=== PATIENT | male | born 1980 | race Two or more races ===

== ENCOUNTER → 2019-11-30 15:02 | Outpatient (BNVA) | payer SELFPAY | PROVIDERS: PCP Internal Medicine; Visit Provider Surgery | DX: Z09 Encounter for follow-up examination after completed treatment for conditions other than malignant neoplasm (principal); Z87.19 Personal history of other diseases of the digestive system | CPT/HCPCS: 99212 ==

== ENCOUNTER 2020-01-09 19:35 | Outpatient (REF) | payer OTHER, SELFPAY ==
--- NOTE | 2020-01-09 19:45 | MR_ITS ---
EXAMINATION: MR CERVICAL SPINE WITHOUT CONTRAST CLINICAL INFORMATION: Arnold-Chiari malformation. COMPARISON: CT scan of the head 10/31/2019. TECHNIQUE: MRI of the cervical spine was obtained using routine sequences without contrast. FINDINGS: Alignment is normal. Vertebral heights are preserved. No acute bone marrow signal changes. There is disc desiccation at multiple levels without substantial loss of intervertebral disc height. There is no canal compromise or cord compression. No abnormal intramedullary signal changes. The cervicomedullary junction is normal. Cerebellar tonsils are orthotopic. Limited visualization of intracranial compartment reveals no abnormal finding. Occipital condyles and lateral C1 masses are intact. Atlantodental joint is normal. C1-C2 articular facets are unremarkable. At C2-C3, C3-C4, C4-C5, and C5-C6 the annular contours are normal. No canal or neuroforaminal compromise at these 4 levels. At C6-C7 there is a broad shallow central protrusion causing indentation of the ventral thecal sac. No canal stenosis. No neuroforaminal encroachment. At C7-T1 the annular contour is normal.. No neuroforaminal encroachment. Visualized soft tissues of the neck are normal. MR/MR cervical spine wo con IMPRESSION: There is a broad shallow central protrusion at C6-C7 causing minimal indentation of the ventral thecal sac. No canal or neuroforaminal compromise. No cord compression or abnormal intramedullary signal changes. The cervicomedullary junction is normal. No Chiari malformation.
== END 2020-01-09 19:36 | disposition home or self-care (01) ==
LOC: HO.MRI 19:35
PROVIDERS: Visit Provider Psychiatry & Neurology Neurology
DX: Q07.00 Arnold-Chiari syndrome without spina bifida or hydrocephalus (principal)
CPT/HCPCS: 72141

== ENCOUNTER 2021-06-13 09:34 | Outpatient (REF) | payer MEDICAID, SELFPAY ==
--- NOTE | ~2021-06-13 | XR_ITS ---
EXAMINATION: XR KNEE, BILATERAL. XR AP STANDING VIEW BILATERAL KNEES CLINICAL INFORMATION: Bilateral knee pain COMPARISON: None TECHNIQUE: AP standing view both knees. Lateral and sunrise views of each knee. FINDINGS: Normal alignment of both knees with no joint space narrowing. No joint effusion. No acute abnormalities. XR/XR knee RT 2V IMPRESSION: Right knee: Normal. Left knee: Normal.
--- NOTE | ~2021-06-13 | XR_ITS ---
EXAMINATION: XR KNEE, BILATERAL. XR AP STANDING VIEW BILATERAL KNEES CLINICAL INFORMATION: Bilateral knee pain COMPARISON: None TECHNIQUE: AP standing view both knees. Lateral and sunrise views of each knee. FINDINGS: Normal alignment of both knees with no joint space narrowing. No joint effusion. No acute abnormalities. XR/XR knee standing BI IMPRESSION: Right knee: Normal. Left knee: Normal.
--- NOTE | ~2021-06-13 | XR_ITS ---
EXAMINATION: XR KNEE, BILATERAL. XR AP STANDING VIEW BILATERAL KNEES CLINICAL INFORMATION: Bilateral knee pain COMPARISON: None TECHNIQUE: AP standing view both knees. Lateral and sunrise views of each knee. FINDINGS: Normal alignment of both knees with no joint space narrowing. No joint effusion. No acute abnormalities. XR/XR knee LT 2V IMPRESSION: Right knee: Normal. Left knee: Normal.
== END 2021-06-13 09:35 | disposition home or self-care (01) ==
LOC: HO.HOSX 09:34
PROVIDERS: Visit Provider Physician Assistant
DX: M22.42 Chondromalacia patellae, left knee (principal)
CPT/HCPCS: 73560; 73565; 99202

== ENCOUNTER 2023-07-15 13:46 | Outpatient (REF) | payer MEDICAID, SELFPAY ==
[2023-07-15 15:03] LABS: MANUAL DIFF FLAG NO
[2023-07-15 15:21] LABS: Basophils Absolute Auto 0.2 X10*3/uL (0.0-0.2); Eosinophils Absolute Auto 0.2 X10*3/uL (0.0-0.4); Eosinophils Percent Auto 2.7 % (0-4); Hematocrit 43.2 % (42.0-52.0); Hemoglobin 14.6 g/dl (14.0-18.0); Imm Gran Abs Auto 0.07 X10*3/uL (0.00-0.03); Imm Gran Pct Auto 0.9 % (0.0-0.4); Lymphocytes Absolute Auto 2.1 X10*3/uL (1.2-4.9); Lymphocytes Percent Auto 26.6 % (20-40); Mean Corpuscular HGB Conc 33.8 g/dl (31.0-36.0); Mean Corpuscular Hemoglobin 27.2 pg (27.0-33.0); Mean Corpuscular Volume 80.6 fL (80.0-98.0); Mean Platelet Volume 9.7 fL (9.4-12.4); Monocytes Absolute Auto 0.6 X10*3/uL (0.1-1.2); Neutrophils Absolute Auto 4.9 x10*3/uL (2.0-8.3); Neutrophils Percent Auto 60.8 % (45-73); Platelet Count 420 X10*3/uL (160-400); Red Blood Count 5.36 X10*6/uL (4.60-5.80); Red Cell Distribution Width 13.6 % (11.0-16.0)
[2023-07-15 15:46] LABS: Alanine Aminotransferase 15 U/L (0-40); Albumin Level 4.3 g/dL (3.5-5.0); Alkaline Phosphatase 100 U/L (39-117); Anion Gap 12 (12-20); Aspartate Amino Transferase 16 U/L (5-37); Bilirubin Total 0.3 mg/dL (0.0-1.0); Blood Urea Nitrogen 16 mg/dL (9-16); Calcium 9.8 mg/dL (8.4-10.2); Carbon Dioxide 29 mmol/L (22-29); Chloride 105 mmol/L (96-108); Estimated Glomerular Filt Rate > 60; Glucose Random 89 mg/dL (60-115); Potassium 3.4 mmol/L (3.3-5.1); Sodium 143 mmol/L (135-145); Total Protein 8.1 g/dL (6.5-8.0)
== END 2023-07-15 13:47 | disposition home or self-care (01) ==
LOC: HO.LAB 13:46
PROVIDERS: PCP Internal Medicine; Referring Provider Internal Medicine; Visit Provider Nurse Practitioner
DX: Z01.818 Encounter for other preprocedural examination (principal); R12 Heartburn; K59.00 Constipation, unspecified; G47.30 Sleep apnea, unspecified; E66.01 Morbid (severe) obesity due to excess calories; J45.909 Unspecified asthma, uncomplicated; Z79.899 Other long term (current) drug therapy
CPT/HCPCS: 36415; 80053; 85025; 99212

== ENCOUNTER 2023-07-15 13:46 | Outpatient (AMB) | payer MEDICAID, SELFPAY ==
[2023-07-15 13:49] VITALS: BP 131/99; PULSE 96; BMI 32.0
--- NOTE | 2023-07-15 13:49 | MHC.OFFVIS ---
Vital Signs 07/15/23 13:49 Height 6 ft Weight 236 lb 5.369 oz BMI 32.0 BP 131/99 H Blood Pressure Location Lt brachial Position Sitting Pulse 96 Intake Visit Reasons: Colonoscopy Screening Intake Note: Patient in office today for colonoscopy screening. CC: Patient c/o constipation and heartburn. He currently takes Omeprazole PRN with good management of symptoms per PT. He also reports having kidney stones. 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 Accompanied by: Self / Same As Patient Allergies No Known Allergies Allergy (Verified 07/15/23 13:50) Medication List - Last Reconciled 07/15/23 by DEBRA Newton albuterol sulfate 90 mcg/actuation 2 puffs PO Q4-6H PRN albuterol sulfate mg inhalation Q4H PRN amitriptyline 150 mg PO BEDTIME bisacodyl (Dulcolax (bisacodyl)) 10 mg (2 x 5 mg) PO BEDTIME 2 days blood pressure test kit-large As directed CPAP (CPAP Machine/Device) As directed cyclobenzaprine 20 mg PO TID PRN ergocalciferol (vitamin D2) 1,250 mcg PO QWEEK escitalopram oxalate 20 mg PO DAILY hydrochlorothiazide 25 mg PO DAILY ibuprofen 600 mg PO Q6H PRN linaclotide (Linzess) 72 mcg PO QAM lorazepam 0.5 mg PO BID losartan 100 mg PO QAM montelukast 10 mg PO QAM omeprazole 20 mg PO DAILY oxycodone 5 mg PO Q8H PRN peg 3350-electrolytes 236-22.74-6.74 -5.86 gram (Golytely) 240 mL PO Q10M 1 day prednisolone acetate 1% 1 drp ophthalmic (eye) ONCE tamsulosin 0.4 mg PO DAILY topiramate 25 mg PO BID HPI HPI Colonoscopy Screening: Details: 43-year-old male here for preprocedural meeting to discuss a screening colonoscopy. He is referred by [facility]. P.m. X KADIE Morbid Obesity-BMI of 30 Asthma Hypertension High cholesterol Hydronephrosis Nephrolithiasis Bipolar disorder Chronic left knee pain BPH - PT DENIES * SURGICAL HISTORY Umbilical hernia repair Bilateral corneal transplant * ALLERGIES: NKDA * [employer]: no labs in our system TODAY'S VISIT This will be his first colonoscopy. He suffers CIC at times only moving his bowels every 4-5 days. He has used senna, miralax, fiber, colace and dulcolax w/o relief. He will feel bloated. His GERD is well controlled on his omeprazole. He has KADIE and asthma that is controlled, no cardiac. There are no prior problems with anesthesia or sedation. No ID problems. There is no known FHX of CRC or polyps. 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 Review of Systems Const Denies fatigue, Denies fever(s), Denies night sweats, Denies poor appetite and Denies weight loss Eyes Details: glasses Reports requires corrective lenses ENT Reports Normal hearing present, Denies dental pain, Denies dysphagia, Denies hearing loss, Denies mouth pain, Denies odynophagia, Denies throat swelling, Denies tongue swelling and Reports other (Dentition adequate) Card Reports no additional complaints Resp Reports no additional complaints GI Details: Denies abdominal pain, Denies melena, Reports bloating, Denies hematochezia, Reports constipation, Denies GI cramping, Denies dysphagia, Denies excessive flatus, Denies early satiety, Denies heartburn, Denies diarrhea, Denies nausea, Denies odynophagia, Denies vomiting and Denies hematemesis Skin/Breast Denies pruritus, Denies lesions, Denies rash and Denies jaundice Neuro Reports Normal hearing present and Denies Abnormal speech present Endo Denies fatigue Aller/Immun Denies throat swelling and Denies tongue swelling Physical Exam Vital Signs: Last Vital Signs Pulse 96 07/15/23 13:49 BP 131/99 H 07/15/23 13:49 BMI result Body Mass Index 32.0 Const General: cooperative, no acute distress, well developed and well groomed Nutritional Appearance: well nourished and obese Orientation/consciousness: oriented to person, oriented to place and oriented to time Limitations: No language barrier HEENT Head: Yes normocephalic and Yes atraumatic Eyes General: appearance normal, both eyes and all related structures Pupils: Equal, round and reactive pupils present Neck Neck: Yes normal visual inspection and Yes no lymphadenopathy Thyroid: Thyroid normal Resp Effort & Inspection: normal respiratory effort and able to speak in complete sentences Auscultation: clear to auscultation bilaterally Cardio Rate: regular rate Rhythm: regular rhythm Heart sounds: Normal, physiologic split S2 sound present Peripheral pulses: radial pulses present and posterior tibial pulses present GI Inspection: No distended, No Abdominal panniculus present and Yes obesity Palpation (GI): Soft to palpation, nontender, no guarding, not rigid and No hepatosplenomegaly present Percussion: Yes normal to percussion Auscultation: normal bowel sounds Rectal Exam - Male: Yes deferred Skin General skin exam: no rashes or lesions noted, turgor normal, skin not dry, no jaundice, No spider nevi and no striae Rashes: no rashes Nails: normal Neuro General: oriented to person, oriented to place and oriented to time Cranial nerves: Yes Equal, round and reactive pupils present and Yes Normal hearing present Speech: No Abnormal speech present Extrem General: Yes normal to inspection, No clubbing, No cyanosis and No edema Psych Appearance: grossly normal and well kempt Mental Status: mental status grossly normal Speech and movement: Normal speech and movement present Affect: normal affect Attitude: cooperative Thought process: Normal thought process present and not confabulating Thought content: Normal thought content present Insight: Good insight present (Psych) Judgement: Good judgement present (Psych) Assessment & Plan Assessment & Plan (1) Pre-op examination: Code(s): Z01.818 - Encounter for other preprocedural examination Category: Medical (2) Sleep apnea: Code(s): G47.30 - Sleep apnea, unspecified Category: Medical (3) Morbid obesity: Code(s): E66.01 - Morbid (severe) obesity due to excess calories Category: Medical (4) Asthma: Code(s): J45.909 - Unspecified asthma, uncomplicated Category: Medical Plan This will be his first colonoscopy. He suffers CIC at times only moving his bowels every 4-5 days. He has used senna, miralax, fiber, colace and dulcolax w/o relief. He will feel bloated. His GERD is well controlled on his omeprazole. He has KADIE and asthma that is controlled, no cardiac. There are no prior problems with anesthesia or sedation. No ID problems. There is no known FHX of CRC or polyps. Orders: Orders Complete Blood Count Auto Diff 07/15/23 Z818 - Encounter for other preprocedural examination, G47.30 - Sleep apnea, unspecified, E66.01 - Morbid (severe) obesity due to excess calories, J45.909 - Unspecified asthma, uncomplicated Colonoscopy - GI Use Only 07/15/23 Z818 - Encounter for other preprocedural examination, G47.30 - Sleep apnea, unspecified, E66.01 - Morbid (severe) obesity due to excess calories, J45.909 - Unspecified asthma, uncomplicated Comprehensive Met. Panel 07/15/23 Z.818 - Encounter for other preprocedural examination, G47.30 - Sleep apnea, unspecified, E66.01 - Morbid (severe) obesity due to excess calories, J45.909 - Unspecified asthma, uncomplicated Medications: New bisacodyl (Dulcolax (bisacodyl)) 10 mg (2 x 5 mg) PO BEDTIME 4 tabs 0RF 2 days linaclotide (Linzess) 72 mcg PO QAM 30 caps 3RF peg 3350-electrolytes 236-22.74-6.74 -5.86 gram (Golytely) until fecal effluent is clear; do not exceed a total volume of 2,000 mL 240 mL PO Q10M 4,000 mL 0RF 1 day Z12.11 - Encounter for screening for malignant neoplasm of colon omeprazole 20 mg PO DAILY 30 caps 6RF Coding Level of Care Code New Pt Level 3 (98738) Diagnoses Pre-op examination Z Sleep apnea G47.30 Morbid obesity E66.01 Asthma J45.90
== END 2023-07-15 14:45 | disposition home or self-care (01) ==
PROVIDERS: PCP Internal Medicine; Referring Provider Internal Medicine; Visit Provider Nurse Practitioner
DX: Z01.818 Encounter for other preprocedural examination (principal); G47.30 Sleep apnea, unspecified; E66.01 Morbid (severe) obesity due to excess calories; J45.909 Unspecified asthma, uncomplicated
CPT/HCPCS: 99203

== ENCOUNTER 2023-08-06 15:53 | Outpatient (AMB) | payer MEDICAID, SELFPAY ==
[2023-08-06 15:54] VITALS: BP 150/99; PULSE 90; BMI 31.7
--- NOTE | 2023-08-06 15:54 | A.OFFVIS_ITS ---
Vital Signs 08/06/23 15:54 Height 6 ft Weight 233 lb 11.04 oz BMI 31.7 BP 150/99 H Blood Pressure Location Lt brachial Position Sitting Pulse 90 Intake Visit Reasons: 3 week follow up Intake Note: Patient in office today in follow up of labs. CC: Patient reports doing well and denies having any new GI concerns today. Allergies No Known Allergies Allergy (Verified 07/15/23 13:50) HPI HPI 3 week follow up: Details: Assessment & Plan (1) Pre-op examination: Code(s): Z01.818 - Encounter for other preprocedural examination Category: Medical (2) Sleep apnea: Code(s): G47.30 - Sleep apnea, unspecified Category: Medical (3) Morbid obesity: Code(s): E66.01 - Morbid (severe) obesity due to excess calories Category: Medical (4) Asthma: Code(s): J45.909 - Unspecified asthma, uncomplicated Category: Medical Orders: Orders Complete Blood Count Auto Diff Today E66.01 - Morbid (severe) obesity due to excess calories, G47.30 - Sleep apnea, unspecified, J45.909 - Unspecified asthma, uncomplicated, Z01.818 - Encounter for other preprocedural examination Colonoscopy - GI Use Only Today E66.01 - Morbid (severe) obesity due to excess calories, G47.30 - Sleep apnea, unspecified, J45.909 - Unspecified asthma, uncomplicated, Z01.818 - Encounter for other preprocedural examination Comprehensive Met. Panel Today E66.01 - Morbid (severe) obesity due to excess calories, G47.30 - Sleep apnea, unspecified, J45.909 - Unspecified asthma, uncomplicated, Z01.818 - Encounter for other preprocedural examination Medications: New bisacodyl (Dulcolax (bisacodyl)) 10 mg (2 x 5 mg) PO BEDTIME 2 days 4 tabs 0RF linaclotide (Linzess) 72 mcg PO QAM 30 caps 3RF peg 3350-electrolytes 236-22.74-6.74 -5.86 gram (Golytely) until fecal effluent is clear; do not exceed a total volume of 2,000 mL 240 mL PO Q10M 1 day 4,000 mL 0RF Z12.11 - Encounter for screening for malignant neoplasm of colon omeprazole 20 mg PO DAILY 30 caps 6RF This will be his first colonoscopy. He suffers CIC at times only moving his bowels every 4-5 days. He has used senna, miralax, fiber, colace and dulcolax w/o relief. He will feel bloated. His GERD is well controlled on his omeprazole. He has KADIE and asthma that is controlled, no cardiac. There are no prior problems with anesthesia or sedation. No ID problems. There is no known FHX of CRC or polyps. Orders: Labs: Laboratory Tests 07/15/23 15:02 WBC 8.0 Hgb 14.6 Hct 43.2 Plt Count 420 H Estimated GFR > 60 Total Bilirubin 0.3 AST 16 ALT 15 Alkaline Phosphatase 100 Colonoscopy Biopsy TODAY'S VISIT He is more regular with the 72mcg Linzess, but he feels that it could be a little bit better. Will try progressing him to the 145 micro g dose and if this is too strong have enough the 72 micro g dose to go backwards. If in between doses then will add an [id number] laxative. In general he says he is feeling much better and much less bloated. Return office visit in 8 weeks [facility] Medical History Umbilical hernia Morbid obesity Sleep apnea Hyperlipidemia Hypertension Surgical History Status post corneal transplant History of umbilical hernia repair Family History (Updated 07/15/23 @ 14:11 by CAROLE Dale) Father Lung cancer Mother HTN (hypertension) Social History (Updated 07/15/23 @ 14:08 by Erika Michael 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 Review of Systems Const Denies fatigue, Denies fever(s), Denies night sweats, Denies poor appetite and Denies weight loss Eyes Details: Glasses Reports requires corrective lenses ENT Reports Normal hearing present, Denies dental pain, Denies dysphagia, Denies hearing loss, Denies mouth pain, Denies odynophagia, Denies throat swelling, Denies tongue swelling and Reports other (Dentition adequate) Card Reports no additional complaints Resp Reports no additional complaints GI Details: Denies abdominal pain, Denies melena, Denies bloating, Denies hematochezia, Reports constipation, Denies GI cramping, Denies dysphagia, Denies excessive flatus, Denies early satiety, Denies heartburn, Denies diarrhea, Denies nausea, Denies odynophagia, Denies vomiting and Denies hematemesis Skin/Breast Denies pruritus, Denies lesions, Denies rash and Denies jaundice Neuro Reports Normal hearing present and Denies Abnormal speech present Endo Denies fatigue Aller/Immun Denies throat swelling and Denies tongue swelling Physical Exam Vital Signs: Last Vital Signs Pulse 90 08/06/23 15:54 BP 150/99 H 08/06/23 15:54 BMI result Body Mass Index 31.7 Const General: cooperative, no acute distress, well developed and well groomed Nutritional Appearance: well nourished and obese Orientation/consciousness: oriented to person, oriented to place and oriented to time Limitations: No language barrier HEENT Head: Yes normocephalic and Yes atraumatic Eyes General: appearance normal, both eyes and all related structures Pupils: Equal, round and reactive pupils present Neck Neck: Yes normal visual inspection and Yes no lymphadenopathy Thyroid: Thyroid normal Resp Effort & Inspection: normal respiratory effort and able to speak in complete sentences Auscultation: clear to auscultation bilaterally Cardio Rate: regular rate Rhythm: regular rhythm Heart sounds: Normal, physiologic split S2 sound present Peripheral pulses: radial pulses present and posterior tibial pulses present GI Inspection: No distended, No Abdominal panniculus present and Yes obesity Palpation (GI): Soft to palpation, nontender, no guarding, not rigid and No hepatosplenomegaly present Percussion: Yes normal to percussion Auscultation: normal bowel sounds Rectal Exam - Male: Yes deferred Skin General skin exam: no rashes or lesions noted, turgor normal, skin not dry, no jaundice, No spider nevi and no striae Rashes: no rashes Nails: normal Neuro General: oriented to person, oriented to place and oriented to time Cranial nerves: Yes Equal, round and reactive pupils present and Yes Normal hearing present Speech: No Abnormal speech present Extrem General: Yes normal to inspection, No clubbing, No cyanosis and No edema Psych Appearance: grossly normal and well kempt Mental Status: mental status grossly normal Speech and movement: Normal speech and movement present Affect: normal affect Attitude: cooperative Thought process: Normal thought process present and not confabulating Thought content: Normal thought content present Insight: Fair insight present (Psych) Judgement: Fair judgement present (Psych) Results Reviewed Results Reviewed: Laboratory Tests 07/15/23 15:02 WBC 8.0 Hgb 14.6 Hct 43.2 Plt Count 420 H Estimated GFR > 60 Total Bilirubin 0.3 AST 16 ALT 15 Alkaline Phosphatase 100 Assessment & Plan Assessment & Plan (1) Chronic idiopathic constipation: Code(s): K59.04 - Chronic idiopathic constipation Category: Medical Plan He is more regular with the 72mcg Linzess, but he feels that it could be a little bit better. Will try progressing him to the 145 micro g dose and if this is too strong have enough the 72 micro g dose to go backwards. If in between doses then will add an [id number]-gwm-sllibce laxative. In general he says he is feeling much better and much less bloated. Return office visit in 8 weeks Colonoscopy Biopsy Medications: New linaclotide (Linzess) Take first thing in the morning with a full glass of water. 145 mcg PO QAM 30 caps 3RF K58.1 - Irritable bowel syndrome with constipation On Hold linaclotide (Linzess) Hold Comment: Doctor's Order 72 mcg PO QAM 30 caps 3RF Coding Level of Care Code Est Pt Level 3 (51129) Diagnoses Chronic idiopathic constipation K59.04
== END 2023-08-06 16:16 | disposition home or self-care (01) ==
PROVIDERS: PCP Internal Medicine; Visit Provider Nurse Practitioner
DX: K59.04 Chronic idiopathic constipation (principal)
CPT/HCPCS: 99213

== ENCOUNTER → 2023-08-06 15:53 | Outpatient (BNVA) | payer MEDICAID, SELFPAY | PROVIDERS: PCP Internal Medicine; Visit Provider Nurse Practitioner | DX: K59.04 Chronic idiopathic constipation (principal) | CPT/HCPCS: 99212 ==

== ENCOUNTER 2023-10-02 13:27 | Outpatient (REF) | payer MEDICAID, SELFPAY ==
[2023-10-08 19:33] LABS: Testosterone, Free 46.9 pg/mL (35.0-155.0); Testosterone, Total 319 ng/dL (250-1100)
== END 2023-10-02 13:28 | disposition home or self-care (01) ==
LOC: HO.CHCLDS 13:27
PROVIDERS: Visit Provider Internal Medicine
DX: R53.83 Other fatigue (principal)
CPT/HCPCS: 36415; 84402; 84403

== ENCOUNTER 2024-03-01 15:27 | Outpatient (REF) | payer MEDICAID, SELFPAY ==
[2024-03-01 17:47] LABS: Bilirubin Total 0.3 mg/dL (0.0-1.0); Calcium 8.5 mg/dL (8.4-10.2); Carbon Dioxide 23 mmol/L (22-29); Chloride 112 mmol/L (96-108); Estimated Glomerular Filt Rate > 60; Glucose Random 139 mg/dL (60-115); Sodium 141 mmol/L (135-145); Total Protein 7.4 g/dL (6.5-8.0)
[2024-03-01 17:48] LABS: Alanine Aminotransferase 15 U/L (0-40); Albumin Level 4.1 g/dL (3.5-5.0); Alkaline Phosphatase 99 U/L (39-117); Anion Gap 9 (12-20); Aspartate Amino Transferase 18 U/L (5-37); Blood Urea Nitrogen 12 mg/dL (9-16)
--- OUTSIDE RECORDS SUMMARY | 2024-03-01 17:49 | XMS_ITS ---
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 Name Role Phone Lindy Ortiz Unavailable [phone] ALLERGIES, ADVERSE REACTIONS, ALERTS Substance Code Code System Type Reaction Severity Status Start Date End Date No known non-drug allergies RxNorm Other substance lena rgy () 1 No known drug allergies RxNorm Other substance allergy () 1 No known allergies RxNorm Other substance allergy () 1 MEDICATIONS Medication Code Code System Start Date Stop Date Route Dosage Directions Fill Instructions ProAir HFA RxNorm 11/06/19 21 losartan potassium RxNorm 03/03/19 24 1 ibuprofen RxNorm 07/17/19 23 1 cyclobenzaprine RxNorm 11/06/19 21 amitriptyline RxNorm 11/06/19 21 topiramate RxNorm 11/06/19 21 escitalopram oxalate RxNorm 11/06/19 21 Ventolin HFA RxNorm 03/03/19 24 2 montelukast sodium RxNorm 03/03/19 24 1 hydrochlorothiazide RxNorm 11/20/19 23 1 PROBLEMS Problem Name Code Code System Start Date End Date Stat us Asthma 092397945 [facility] 11/05/2020 Active Other bursitis of knee, right knee 80530104 [facility] 2020 Active Anxiety disorder, unspecified 437454537 [facility] Active Depression, unspecified 30195560 [facility] Active Bipolar disorder, unspecified 007532500 [facility] Active Essential (primary) hypertension 14501942 [facility] Active Left lower quadrant pain 484435786 [facility] 07/02/2023 Active ENCOUNTERS Encounter Diagnosis Code Code System Date Stat us Left lower quadrant pain 882527571 [facility] 07/02/2023 Active Essential (primary) hypertension 62138260 [facility] 06/16 Active IMMUNIZATIONS * None VITAL SIGNS Code Code System Vitals Name Date Value and Un its 8462-4 [facility] Blood Pressure-Diastolic 07/02/2023 106 mmHg 8480-6 [facility] Blood Pressure-Systolic 07/02/2023 1 54 mmHg 8867-4 [facility] Heart Rate 07/02/2023 79 /min 9279-1 [facility] Respiratory Rate 07/02/2023 18 /min 8310-5 [facility] Body Temperature 07/02/2023 97.7 F 46336-4 [facility] Oxygen Saturation 07/02/2023 98 % SOCIAL HISTORY * None PROCEDURES * None RESULTS Test Code Code System Description Result Value Date Ref erence Range [facility] Glucose Negative 07/02/2023 [facility] Bilirubin Negative 07/02/2023 [facility] Ketone Negative 07/02/2023 [facility] Specific [place] >=1.030 07/02/2023 [facility] Blood Negative 07/02/2023 [facility] pH 6.73081 07/02/2023 [facility] Protein Negative 07/02/2023 [facility] Urobilinogen 0.09877 E.U./dL 07/02/2023 [facility] Nitrite Negative 07/02/2023 [facility] Leukocytes Negative 07/02/2023 [facility] Color Yellow 07/02/2023 [facility] Clarity Clear 07/02/2023 MEDICAL EQUIPMENT * Patient has no history of implantable devices ASSESSMENT Assessment As discussed given your abdo alan pain and tenderness I recommend you go to the emergency department for further evaluation TREATMENT PLAN No Treatment Plan Items Labs Tests Test Name Code Code System Date Clinitek Urinalysis, automated, without microscopy 810 03 CPT 07/02/2023 GOALS * None HEALTH CONCERNS * No Health Concerns FUNCTIONAL AND COGNITIVE STATUS * None CONSULTATION NOTES * Trini Yendarryl - 07/02/2023 ED TransferReferred To: [address] [id number]: F: Schedule: CompletedNotes:* Comments: 43-year-old male with worsening left lower quadrant pain. Has focal tenderness on exam. Asmita malcolm needs labs and CT to further evaluate Mode of transport is Privately Owned VehicleStability Status is stableOrdered 07/02/2023 03:56 PM by Zafar Vitale edited 09/04/2023 12:48 PM by ADRIAN PerezR HARGE SUMMARY NOTES * None HISTORY AND PHYSICAL NOTES * Reason for visit - Illness IMAGING NOTES * None LABORATORY REPORT NARRATIVE NOTES * None PATHOLOGY REPORT NARRATIVE NOTES * None PROGRESS NOTES * None
[2024-03-01 19:31] LABS: Potassium 2.9 mmol/L (3.3-5.1)
== END 2024-03-01 15:28 | disposition home or self-care (01) ==
LOC: HO.CHCLDS 15:27
PROVIDERS: Visit Provider Internal Medicine
DX: N20.1 Calculus of ureter (principal)
CPT/HCPCS: 36415; 80053

== ENCOUNTER 2024-09-12 12:45 | Outpatient (REF) | payer OTHER, SELFPAY ==
--- OUTSIDE RECORDS SUMMARY | 2024-09-12 13:28 | XMS_ITS | Encounter Summary ---
Author Organization [employer] Address [address] [place] [address] [address] [address] Care Team Providers Care Weapons Electrical Engineering Officer Name Role Phone Lucas Love MD Primary Care Prov ider Reason for Visit * Reason Onset Date Comments Results 08/13/2022 Encounter Details Date Type Department Care Team (Late st Contact Info) Description 08/13/2022 Telephone [facility] [address] [place] [address] Lucas Love MD [address] [place] [address] Results Social History Tobacco Use Types Packs/Day Years Used Date Smoking Tobacco: Never Passive Smoke Exposure: Never Smokeless Tobacco: Never Depression Answer Date Recorded Patient Health Questionnaire-9 Score 17 08/08/2022 Depression Answer Date Recorded Patient Health Questionnaire-2 Score 6 08/08/2022 Sex and Gender Information Value Date Recorded Sex Assigned at Male 12/16/2021 10:34 AM EDT Legal Sex Male 10:34 AM EDT Gender Identity Choose not to disclose 10:34 AM EDT Sexual Orientation Straight 12/16/2021 10 :34 AM EDT COVID-19 Exposure Response Date Recorded In the last 10 days, have yo u been in contact with someone who was confirmed or suspected to have Coronavirus/COVID-19? No / Unsure 08/13/2022 3:24 PM EDT documented as of this encounter Miscellaneous Notes * Telephone Encounter - Kishantucker [facility] Crews - 08/13/2022 11:25 AM EDT Tc from pt requesting his X-ray results. Patient states X-rays were done 08/07/2022. Please contact pt at [phone] documented in this encounter Plan of Treatment Upcoming Encounters Date Type Department Care Team (Late st Contact Info) Description 09/29/2024 3:30 PM EDT Telemedicine [facility] [address] [place] [address] Lucas Love MD [address] [place] [address] documented as of this encounter Visit Diagnoses Not on filedocumented in this encounter Additional Health Concerns Assessment Noted Time PHQ-9 Depression Total Score: 17 023 2:21 PM EDT documented as of this encounter Care Teams Weapons Electrical Engineering Officer Relationship Specialty Start Date End Date Lucas Love MD [address] [place] [address] PCP - General Internal Medicine 05/13/21 documented as of this encounter
--- OUTSIDE RECORDS SUMMARY | 2024-09-12 13:28 | XMS_ITS | Clinical Summary ---
Author Organization [facility] it Address [address] [place] [address] Care Team Providers Care Convertible Top Installer Name Role Phone Lucas Love Primary Care Provide r Surgical History Surgery Date Site/Laterality Comments EYE SURGERY PROCEDURE: HISTORICAL EYE SURGERY; COMMENT: history of keratoconus w/ corneal transplant x 2 Medical History Medical History Date Comments Asthma DX:Asthma Keratoconus DX:Keratoconus Allergic rhinitis 03/22/2009 DX:Allergic rh initis Bipolar disorder ([facility]/HCC V2 4, [facility]/HCC V28) 07/23/2020 DX:Bipolar disorder ([facility]) Depression 07/23/2020 DX:Depression Hernia, umbilical 07/23/2020 DX:Hernia, umb ilical Migraine 07/23/2020 DX:Migraine Obstructive sleep apnea 07/23/2020 DX:Obstr uctive sleep apnea; COMMENT: CPAP Prediabetes 07/23/2020 DX:Prediabetes; COMMENT: HBA1c 5.7 09/27/19 Family History Medical History Relation Name Comments Lung cancer Father Hypertension Mother Relation Name Status Comments Father Mother Social History Tobacco Use Types Packs/Day Years Used Date Smoking Tobacco: Former Smokeless Tobacco: Never Alcohol Use Standard Drinks/Week Comments Yes 0 (1 standard drink = 0.6 oz pur e alcohol) Sex and Gender Information Value Date Recorded Sex Assigned at Not on file Legal Sex Male 1:15 AM EST Gender Identity Not on file Sexual Orientation Not on file Obstetrics History Plan of Treatment Health Maintenance Due Date Last Done Comments Pneumococcal Vaccine: Pediatrics (0 to 5 Years) and At-Risk Patients (6 to 49 Years) (1 of 2 - PCV) 1997 DTaP,Tdap,and Td Vaccines (7 - Td or Tdap) 09/27/2003 09/26/1993, 07/25/1983, 11/09/1979, Additional history exists Cholesterol Screening (Lipid Panel) 01/19/2022 Colorectal Cancer Screening: Colonoscopy 01/19/2022 HIV Screening 01/19/2022 Hepatitis C Screening 01/19/2022 Social Influencers of Health Screening 01/19/2022 COVID-19 Vaccine ( season) 2023 Depression Screening 02/17/2024 Influenza Vaccine (#1) 2024 03/22/2009, 2009 IPV Vaccines Completed 07/18/1983, 10/18, 1978, Additional history exists MMR Vaccines Completed 01/16/1991, 11/09/1979 Hepatitis B Vaccines Completed 06/03/1997, 11/26/1996, 10/31/1996 HIB Vaccines Aged Out No longer eligi ble based on patient's age to complete this topic HPV Vaccines Aged Out No longer eligi ble based on patient's age to complete this topic Hepatitis A Vaccines Aged Out No long er eligible based on patient's age to complete this topic Meningococcal ACWY Vaccine Aged Out N o longer eligible based on patient's age to complete this topic Meningococcal B Vaccine Aged Out No l onger eligible based on patient's age to complete this topic RSV Immunization Patients Under 20 months Aged Out No longer eligible based on patient's age to complete this topic Varicella Vaccines Aged Out No longer eligible based on patient's age to complete this topic Care Teams Convertible Top Installer Relationship Specialty Start Date End Date Lucas Love [address] [place] [address] PCP - General 11/12/23
[2024-09-12 14:46] LABS: MANUAL DIFF FLAG NO
[2024-09-12 14:55] LABS: Hematocrit 43.1 % (42.0-52.0); Hemoglobin 14.3 g/dl (14.0-18.0); Imm Gran Abs Auto 0.05 X10*3/uL (0.00-0.03); Imm Gran Pct Auto 0.6 % (0.0-0.4); Lymphocytes Absolute Auto 2.0 X10*3/uL (1.2-4.9); Mean Corpuscular HGB Conc 33.2 g/dl (31.0-36.0); Mean Corpuscular Hemoglobin 26.8 pg (27.0-33.0); Mean Corpuscular Volume 80.7 fL (80.0-98.0); NRBC Abs Auto 0.000 X10*3/uL (0.0-0.012); NRBC Pct Auto 0.0 /100WBC (0.0-0.2); Platelet Count 322 X10*3/uL (160-400); Red Blood Count 5.34 X10*6/uL (4.60-5.80); White Blood Count 8.0 X10*3/uL (4.8-10.8)
[2024-09-12 15:01] LABS: Hemoglobin A1C 136.1294 umol/L; Total Hemoglobin (HGBA1C) 3691.4963 umol/L
[2024-09-12 15:30] LABS: Alanine Aminotransferase 30 U/L (0-40); Albumin Level 4.3 g/dL (3.5-5.0); Alkaline Phosphatase 109 U/L (39-117); Anion Gap 13 (12-20); Aspartate Amino Transferase 20 U/L (5-37); Blood Urea Nitrogen 18 mg/dL (9-16); Calcium 9.0 mg/dL (8.4-10.2); Carbon Dioxide 23 mmol/L (22-29); Chloride 107 mmol/L (96-108); Cholesterol 154 mg/dL (<200); Estimated Glomerular Filt Rate > 60; HDL Cholesterol 25 mg/dL (>40); Potassium 3.1 mmol/L (3.3-5.1); Sodium 140 mmol/L (135-145); Total Protein 7.3 g/dL (6.5-8.0); Triglycerides 508 mg/dL (<150)
[2024-09-12 16:03] LABS: Folate 10.1 ng/mL (> or = 4.0); Vitamin B12 350 pg/mL (200-900)
[2024-09-17 15:28] LABS: Testosterone, Free 48.0 pg/mL (35.0-155.0)
== END 2024-09-12 12:46 | disposition home or self-care (01) ==
LOC: HO.CHCLDS 12:45
PROVIDERS: Visit Provider Internal Medicine
DX: I10 Essential (primary) hypertension (principal)
CPT/HCPCS: 36415; 80053; 80061; 82607; 82746; 83036; 84402; 84403; 84443; 85025